=== PATIENT | female | born 1970 | race Two or more races ===

== ENCOUNTER 2018-06-13 12:24 | Emergency (ER) | payer MEDICAID ==
[~2018-06-13] VITALS: Ht 165.1 cm; Wt 101.6 kg
--- NOTE | 2018-06-13 12:26 | NUR ---
ED Nurse Note: pt not in the waiting room.
--- NOTE | 2018-06-13 13:00 | Emergency Room Report ---
History of Present Illness General Chief Complaint: Back Pain-No Injury Source: Patient Present Illness HPI 47-year-old female presents to the emergency department complaining of 6 out of 10 in severity pain to the anterior knee with some swelling status post bumping her knee on a corner of her vehicle. Patient states that after she felt fine however she looked down she had a swollen lump that she became concerned. Patient is also reporting that she has had several episodes of sharp pain going down her leg from her left-sided low back that feels like her legs are negative bowel and then resolves on its own. Patient states she has never had symptoms like this in the past she denies back pain or previous injuries to the back. Patient states that she has had 2 broken toes in the affected extremity for over one month and is still awaiting orthopedic follow-up. She denies urinary frequency, dysuria, hematuria or urinary urgency. Denies history of kidney stones. Denies numbness tingling or loss of sensation or gross motor movements of the extremities, incontinence of bowel or bladder. Denies CP, Palpitations, LOC, AMS, dizziness, Changes in Vision, weakness or a sudden severe headache. Allergies: Coded Allergies: No Known Allergies (Unverified , 06/13/18) Patient History Past Medical History: see triage record Past Surgical History: none Pertinent Family History: none Last Menstrual Period: Mar 2018 Reviewed Nursing Documentation: PMH: Agreed; PSxH: Agreed Nursing Documentation-PMH Past Medical History: No History, Except For Hx Hypertension: Yes Hx Diabetes: Yes Review of Systems All Other Systems: negative except mentioned in HPI Physical Exam Vital Signs Date Time Temp Pulse Resp B/P (MAP) Pulse Ox O2 Delivery O2 Flow Rate FiO2 06/13/18 12:28 99.0 91 16 131/77 95 Room Air Sp02 EP Interpretation: reviewed, normal General Appearance: well appearing, no apparent distress, alert, GCS 15, non- toxic Head: normocephalic, atraumatic Eyes: bilateral eye normal inspection, bilateral eye PERRL ENT: hearing grossly normal, normal voice Neck: full range of motion Respiratory: lungs clear, normal breath sounds, speaking full sentences Cardiovascular #1: regular rate, rhythm Cardiovascular #2: 2+ dorsalis pedis (R), 2+ dorsalis pedis (L) Musculoskeletal: back normal, gait/station normal, normal range of motion, tender - Patient has bilateral lumbar paraspinal tenderness to palpation primarily on the left side with some radiation down to the left upper gluteal as well as left hamstring. There is mild tenderness to palpation to the anterior hernandez just below the knee With some swelling noted. No Increased laxity of the joint no erythema, warmth, bruising or pain with range of motion. Neurologic: alert, oriented x3, responsive, motor strength/tone normal, sensory intact, normal gait, speech normal, grossly normal Psychiatric: judgement/insight normal Skin: normal color, no rash, warm/dry, well hydrated Medical Decision Making PA Attestation Dr. Moses is my supervising Physician whom patient management has been discussed with. Diagnostic Impression: Primary Impression: Contusion of knee, left Qualified Codes: S80.02XA - Contusion of left knee, initial encounter Additional Impression: Sciatic nerve pain Qualified Codes: M54.32 - Sciatica, left side ER Course 47-year-old female presents to the emergency department complaining of 6 out of 10 in severity pain to the anterior knee with some swelling status post bumping her knee on a corner of her vehicle. Patient states that after she felt fine however she looked down she had a swollen lump that she became concerned. Patient is also reporting that she has had several episodes of sharp pain going down her leg from her left-sided low back that feels like her legs are negative bowel and then resolves on its own. Patient states she has never had symptoms like this in the past she denies back pain or previous injuries to the back. Patient states that she has had 2 broken toes in the affected extremity for over one month and is still awaiting orthopedic follow-up. She denies urinary frequency, dysuria, hematuria or urinary urgency. Denies history of kidney stones. Denies numbness tingling or loss of sensation or gross motor movements of the extremities, incontinence of bowel or bladder. Denies CP, Palpitations, LOC, AMS, dizziness, Changes in Vision, weakness or a sudden severe headache. Ddx considered but are not limited to Fracture, dislocation, contusion, Sprain/ Strain/Spasm, Epidural abscess, Neoplastic mets, DVT just to name a few. Vital signs: are WNL, pt. is afebrile H&PE are most consistent with left knee/hernandez contusion, and LBP with sciatic pain symptoms. ambulatory without assistance, no saddle anesthesia. no midline spine pain/tenderness ORDERS: - X-ray's not warranted at this time. ED INTERVENTIONS: - Dyllan wrap applied by zoology technical officer. Pt. remains neurovascularly intact. -I do not identify an emergent condition at this time. With current presentation , pt. is stable for close outpatient follow up and conservative treatment. D/ w pt. to return promptly to ED with worsening or new symptoms.- Pt. verbalizes' understanding and agreement with proposed treatment plan. DISCHARGE: At this time pt. is stable for d/c to home. Will provide printed patient care instructions, and any necessary prescriptions. Care plan and follow up instructions have been discussed with the patient prior to discharge. Last Vital Signs Date Time Temp Pulse Resp B/P (MAP) Pulse Ox O2 Delivery O2 Flow Rate FiO2 06/13/18 12:28 99.0 91 16 131/77 95 Room Air Disposition: HOME, SELF-CARE Condition: Stable Scripts Acetaminophen* (TYLENOL EXTRA STRENGTH*) 500 Mg Tablet 500 MG ORAL Q6H, #20 TAB 0 Refills Prov: Caprice West 06/13/18 Methocarbamol* (ROBAXIN-750*) 750 Mg Tablet 750 MG PO QID for 7 Days, #28 TAB 0 Refills Prov: Caprice West 06/13/18 Patient Instructions: Contusion, [id number], Sciatica Additional Instructions: Take medications as directed. Follow up with a Primary Care Provider in 3-5 days, even if your symptoms have resolved. --Please review list of primary care clinics, if you do not already have a primary care provider Return sooner to ED if new symptoms occur, or current symptoms become worse. Do not drink alcohol, drive, or operate heavy machinery while taking Robaxin as this may cause drowsiness. - Please note that this Emergency Department Report was dictated using [employer] operator helper hot metal technology software, occasionally this can lead to erroneous entry secondary to interpretation by the dictation equipment. Caprice West Jun 13, 2018 13:00
[2018-06-13] MEDS ORDERED: ROBAXIN-750750 MG PO (13:01)
[2018-06-13] MEDS ORDERED: TYLENOL EXTRA500 MG ORAL (13:01)
[2018-06-13] MEDS ORDERED: NKM (13:15)
[2018-06-13 14:02] VITALS: BP 131/77
--- NOTE | 2018-06-13 14:03 | NUR ---
ED Nurse Note: pt. was examed, treated and cleared for D/C home by ER provider. PT. received D/C instructions with prescriptions, verbalized understanding and left ER with steady gait and all personal belongings , ID bend removed.
[2018-06-13 14:04] VITALS: BP 131/77
== END 2018-06-13 14:04 | disposition home or self-care (01) ==
LOC: EMR 13:02
DX: S80.02XA Contusion of left knee, initial encounter (principal); W22.8XXA Striking against or struck by other objects, initial encounter; Y92.810 Car as the place of occurrence of the external cause; M54.32 Sciatica, left side; I10 Essential (primary) hypertension
CPT/HCPCS: 99283

== ENCOUNTER → 2018-10-27 | Emergency (ER) | payer MEDICAID ==
[~2018-10-27] VITALS: Ht 157.5 cm; Wt 107.0 kg
[~2018-10-27] MED LIST: ATORVASTATIN CA40 MG ORAL; BENAZEPRIL HCL20 MG ORAL; GABAPENTIN300 MG ORAL; LEVOTHYROXINE75 MCG ORAL; NKM; ROBAXIN-750750 MG PO; SYMLIN600 MCG/1 SUBQ; TYLENOL EXTRA500 MG ORAL
--- NOTE | 2018-10-27 18:25 | NUR ---
ED Nurse Note: Pt ambulated to Ed from home c/o back pain that radiates to the abdomen, 3/10 for 2 days. Pt is A&Ox4, VSS.
[2018-10-27 18:31] VITALS: BP 168/81
--- NOTE | 2018-10-27 19:14 | NUR ---
HAND-OFF: Report given to Haider Salazar.
--- NOTE | 2018-10-27 19:15 | NUR ---
ED Nurse Note: Received report from Tete/RN. Pt is A/ZEUS 4, VSS. Will continue to monitor.
[2018-10-27 19:23] VITALS: BP 158/76
--- NOTE | 2018-10-27 19:23 | NUR ---
ER DISCHARGE NOTE: Patient is cleared to be discharged per ERMD. Pt is aox4 on room air with stable vital signs. Pt was given dc and prescription instructions and was able to verbalize understanding. Pt's ID band removed. Pt is able to ambulate with steady gait and took all belongings.
--- NOTE | 2018-10-27 19:32 | Emergency Room Report ---
History of Present Illness General Chief Complaint: Lower Back Pain or Injury Source: Patient, Medical Record Present Illness HPI 48-year-old female is in CD for evaluation. Patient complaining of back pain times one week. Pain is dull, 6 out of 10, radiating to the chest.With deep breaths. Denies chest pain or shortness of breath. Denies cough. States she was seen by her PMD last week and was prescribed ibuprofen. States that it is helping somewhat with the pain. No other aggravating relieving factors. Denies any other associated symptoms Allergies: Coded Allergies: No Known Allergies (Unverified , 06/13/18) Patient History Past Medical History: DM, HTN Past Surgical History: none Pertinent Family History: none Social History: Denies: smoking, alcohol use, drug use Last Menstrual Period: 08/27/18 Now: No Immunizations: UTD Reviewed Nursing Documentation: PMH: Agreed; PSxH: Agreed Nursing Documentation-PMH Past Medical History: No History, Except For Hx Hypertension: Yes Hx Diabetes: Yes Review of Systems All Other Systems: negative except mentioned in HPI Physical Exam Vital Signs Date Time Temp Pulse Resp B/P (MAP) Pulse Ox O2 Delivery O2 Flow Rate FiO2 10/27/18 18:12 98.1 86 16 96 Room Air 10/27/18 18:31 168/81 Sp02 EP Interpretation: reviewed, normal General Appearance: no apparent distress, alert, GCS 15, non-toxic, obese Head: normocephalic, atraumatic Eyes: bilateral eye normal inspection, bilateral eye PERRL ENT: hearing grossly normal, normal pharynx, no angioedema, normal voice Neck: full range of motion, supple/symm/no masses Respiratory: chest non-tender, lungs clear, normal breath sounds, speaking full sentences Cardiovascular #1: regular rate, rhythm, no edema Cardiovascular #2: 2+ carotid (R), 2+ carotid (L), 2+ radial (R), 2+ radial (L) , 2+ dorsalis pedis (R), 2+ dorsalis pedis (L) Gastrointestinal: normal bowel sounds, non tender, soft, non-distended, no guarding, no rebound Rectal: deferred Genitourinary: normal inspection, no CVA tenderness, no vertebral tenderness Musculoskeletal: gait/station normal, normal range of motion, tender - paraspinal thoracic pain Neurologic: alert, oriented x3, responsive, motor strength/tone normal, sensory intact, speech normal Psychiatric: judgement/insight normal, memory normal, mood/affect normal, no suicidal/homicidal ideation Reflexes: 3+ bicep (R), 3+ bicep (L), 3+ tricep (R), 3+ tricep (L), 3+ knee (R) , 3+ knee (L) Skin: normal color, no rash, warm/dry, well hydrated Lymphatic: no adenopathy Medical Decision Making Diagnostic Impression: Primary Impression: Back pain Qualified Codes: M54.6 - Pain in thoracic spine ER Course Hospital Course 48-year-old female presents ED complaining of upper back pain Differential diagnoses include: pneumonia, muscular pain, ACS Clinical course Patient placed on stretcher. After initial history, physical exam reveals a middle-aged female in no acute distress. There is some paraspinal pain in the thoracic region. No vertebral body tenderness. Lungs clear. Remainder physical exam unremarkable I ordered EKG and chest x-ray EKGnormal sinus rhythm no acute ischemic changes interpreted by me Chest x-raycardiomegaly, no focal consolidation, no other acute process Discussed findings with patient. Pain is likely muscular. No signs of infectious process. Afebrile, stable vitals. Safe for discharge or close outpatient follow-up. States she has a PMD. We'll prescribe robaxin Diagnosis - back pain Stable and discharged to home with prescription for robaxin. Followup with PMD. Return to ED if symptoms recur or worsen EKG Diagnostic Results Rate: normal Rhythm: NSR ST Segments: no acute changes ASA given to the pt in ED: No Rhythm Strip Diag. Results EP Interpretation: yes Rhythm: NSR, no PVC's, no ectopy Chest X-Ray Diagnostic Results Chest X-Ray Diagnostic Results : Chest X-Ray Ordered: Yes # of Views/Limited/Complete: 1 View Indication: Chest Pain EP Interpretation: Yes Interpretation: no consolidation, no effusion, no pneumothorax, no acute cardiopulmonary disease Impression: No acute disease Electronically Signed by: Electronically signed by Antonio Bruce MD Last Vital Signs Date Time Temp Pulse Resp B/P (MAP) Pulse Ox O2 Delivery O2 Flow Rate FiO2 10/27/18 18:31 98.1 86 18 168/81 96 Room Air Status: improved Disposition: HOME, SELF-CARE Condition: Stable Scripts Methocarbamol* (ROBAXIN-750*) 750 Mg Tablet 750 MG PO TID, #21 TAB 0 Refills Prov: Antonio Bruce MD 10/27/18 Patient Instructions: Back Pain, Adult Antonio Bruce MD October 27, 2018 19:32
--- NOTE | 2018-10-28 11:53 | Diagnostic Imaging Report ---
Indication: Dyspnea Comparison: None A single view chest radiograph was obtained. Findings: Cardiomediastinal appearance is within normal limits for age. The lungs are clear. Pulmonary vascularity is appropriate. The diaphragmatic contour is smooth and costophrenic angles are sharp. No pleural effusions are identified. The bones are unremarkable. Impression: No acute findings
== END | disposition home or self-care (01) ==
LOC: EMR 18:43
DX: M54.6 Pain in thoracic spine (principal); I10 Essential (primary) hypertension; E11.9 Type 2 diabetes mellitus without complications
CPT/HCPCS: 71045; 93005; 99283

== ENCOUNTER 2019-04-01 12:05 | Emergency (ER) | payer MEDICAID ==
[~2019-04-01] VITALS: Ht 157.5 cm; Wt 108.9 kg
[2019-04-01 12:15] VITALS: BP 137/69
--- NOTE | 2019-04-01 12:15 | NUR ---
ED Nurse Note: Stacy walked into Ed c/o right eye pain for the past 2 days, patient denies any changes in vision, states that her eye is puffy and has a tendency to scratch it, patient has a vision of bilateral 20/40 will continue to monitor
--- NOTE | 2019-04-01 12:26 | Emergency Room Report ---
History of Present Illness General Chief Complaint: Eye Problems Source: Patient, Medical Record Present Illness HPI 48-year-old female with history of diabetes who is insulin-dependent here complaining of pain and swelling as well as discharge from right eye that started yesterday. Patient does not recall fall or injury. Reports that she might have touched her right eye with a dirty hand. Scant amount of yellow discharge is noted. Also some periorbital swelling noted. Complains of a 5 out of 10 pain in the right eye however denies photophobia, blurry vision. Denies headache, dizziness, vertigo, palpitations chest pain. Has not taken medication for symptom relief. Allergies: Coded Allergies: No Known Allergies (Unverified , 06/13/18) Patient History Past Medical History: see triage record Past Surgical History: unable to obtain Pertinent Family History: none Last Menstrual Period: 03/31/2019 Now: No : 0 Para: 0 Immunizations: UTD Reviewed Nursing Documentation: PMH: Agreed; PSxH: Agreed Nursing Documentation-PMH Hx Hypertension: Yes Hx Diabetes: Yes Review of Systems All Other Systems: negative except mentioned in HPI Physical Exam Vital Signs Date Time Temp Pulse Resp B/P (MAP) Pulse Ox O2 Delivery O2 Flow Rate FiO2 04/01/19 12:12 98.8 85 18 137/69 (91) 95 Room Air Sp02 EP Interpretation: reviewed, normal General Appearance: no apparent distress, alert, GCS 15, non-toxic Head: normocephalic, atraumatic Eyes: right eye other - Conjunctivae injected ENT: hearing grossly normal, normal pharynx, no angioedema, normal voice Neck: full range of motion, supple/symm/no masses Respiratory: chest non-tender, lungs clear, normal breath sounds, no rhonchi, no wheezing, speaking full sentences Cardiovascular #1: regular rate, rhythm, no edema, no murmur Gastrointestinal: normal bowel sounds, non tender, soft, non-distended, no guarding, no rebound Genitourinary: no CVA tenderness Musculoskeletal: back normal, gait/station normal, normal range of motion, non- tender Neurologic: alert, oriented x3, responsive, motor strength/tone normal, sensory intact, speech normal Psychiatric: judgement/insight normal, memory normal, mood/affect normal, no suicidal/homicidal ideation Skin: no rash Lymphatic: no adenopathy Medical Decision Making PA Attestation All my diagnosis and treatment plans were reviewed ad discussed with my supervising physician Dr. Moses Diagnostic Impression: Primary Impression: Bacterial conjunctivitis Additional Impression: Periorbital cellulitis of right eye ER Course 48-year-old female with history of diabetes who is insulin-dependent here complaining of pain and swelling as well as discharge from right eye that started yesterday. Patient does not recall fall or injury. Reports that she might have touched her right eye with a dirty hand. Scant amount of yellow discharge is noted. Also some periorbital swelling noted. Complains of a 5 out of 10 pain in the right eye however denies photophobia, blurry vision. Denies headache, dizziness, vertigo, palpitations chest pain. Has not taken medication for symptom relief. Ddx considered but are not limited to: bacterial conjunctivitis, allergic conjunctivitis, viral conjunctivitis, periorbital cellulitis, global trauma Vital signs: are WNL, pt. is afebrile H&PE are most consistent with: Bacterial conjunctivitis, periorbital cellulitis ORDERS: Augmentin, ofloxacin ophthalmic ED INTERVENTIONS: None required at this time. DISCHARGE: At this time pt. is stable for d/c to home. Will provide printed patient care instructions, and any necessary prescriptions. Care plan and follow up instructions have been discussed with the patient prior to discharge. Due to patient's diabetic status patient to be aggressively treated with antibiotics, also follow-up with import dispatcher. Patient agrees and also agrees to return to emergency room if worsening symptoms. Last Vital Signs Date Time Temp Pulse Resp B/P (MAP) Pulse Ox O2 Delivery O2 Flow Rate FiO2 04/01/19 12:12 98.8 85 18 137/69 (91) 95 Room Air Disposition: HOME, SELF-CARE Condition: Stable Scripts Amoxicillin/Potassium Clav 875-125* (AUGMENTIN 875-125 TABLET*) 1 Each Tablet 1 TAB ORAL TWICE A DAY for 7 Days, #14 TAB Prov: Jackie Beach 04/01/19 Ofloxacin (Ofloxacin) 5 Ml Drops 2 DROP OP Q4HR for 5 Days, #5 ML Prov: Jackie Beach 04/01/19 Patient Instructions: Bacterial Conjunctivitis, [id number], Cellulitis, Easy- to-Read Additional Instructions: Take medication as directed, follow-up with your primary care provider if worsening symptoms return to the emergency room also follow-up with an import dispatcher Jackie Beach Apr 01, 2019 12:26
[2019-04-01] MEDS ORDERED: OFLOXACIN10 ML OP (12:27)
[2019-04-01] MEDS ORDERED: AUGMENTIN 875-1 EAC1 ORAL (12:27)
[2019-04-01 12:45] VITALS: BP 137/69
--- NOTE | 2019-04-01 12:45 | NUR ---
ER DISCHARGE NOTE: Patient is cleared to be discharged per ERMD, pt is aox4, on room air, with stable vital signs. pt was given dc and prescription instructions, pt was able to verbalize understanding, pt id band removed without complications. pt is able to ambulate with steady gait. pt took all belongings.
== END 2019-04-01 12:45 | disposition home or self-care (01) ==
LOC: EMR 12:22
DX: H10.89 Other conjunctivitis (principal); L03.213 Periorbital cellulitis; I10 Essential (primary) hypertension; E11.9 Type 2 diabetes mellitus without complications
CPT/HCPCS: 99282

== ENCOUNTER 2019-08-08 18:38 | Inpatient (IN) | payer MEDICAID ==
[~2019-08-08] VITALS: Ht 157.5 cm; Wt 108.0 kg
[~2019-08-08 18:38] MED LIST changes: +AUGMENTIN 875-1 EAC1 ORAL; +OFLOXACIN10 ML OP
[2019-08-08 19:00] VITALS: BP 145/66
--- NOTE | 2019-08-08 19:07 | Emergency Room Report ---
History of Present Illness General Chief Complaint: Palpitations Source: Patient Present Illness HPI Patient presents with complaints of chest palpitations that started this morning She reports that later in the afternoon she had some chest heaviness Denies any active pain at this time denies any headache denies any vomiting or diarrhea she reports that a similar episode happened several years ago She was at another emergency room and was found to be okay for follow-up Patient has diabetes and takes insulin for diabetes Allergies: Coded Allergies: No Known Allergies (Unverified , 06/13/18) Patient History Past Medical History: see triage record Last Menstrual Period: na Now: No Reviewed Nursing Documentation: PMH: Agreed; PSxH: Agreed Nursing Documentation-PMH Past Medical History: No History, Except For Hx Hypertension: Yes Hx Diabetes: Yes Review of Systems All Other Systems: negative except mentioned in HPI Physical Exam Vital Signs Date Time Temp Pulse Resp B/P (MAP) Pulse Ox O2 Delivery O2 Flow Rate FiO2 08/08/19 18:43 98.1 85 20 141/66 (91) 94 Room Air Sp02 EP Interpretation: reviewed, normal General Appearance: well appearing, no apparent distress Head: normocephalic, atraumatic Eyes: bilateral eye PERRL, bilateral eye EOMI ENT: hearing grossly normal, normal pharynx, TMs + canals normal, uvula midline Neck: full range of motion, supple, no meningismus, no bony tend Respiratory: lungs clear, normal breath sounds, no rhonchi, no respiratory distress, no retraction, no accessory muscle use Cardiovascular #1: normal peripheral pulses, regular rate, rhythm, no edema, no gallop, no JVD, no murmur Gastrointestinal: normal bowel sounds, non tender, soft, no mass, no organomegaly, non-distended, no guarding, no hernia, no pulsatile mass, no rebound Genitourinary: no CVA tenderness Musculoskeletal: normal inspection Neurologic: motor strength/tone normal, parking assistant III-XII nml as tested, oriented x3 , sensory intact, responsive Psychiatric: mood/affect normal Lymphatic: normal inspection, no adenopathy Medical Decision Making Diagnostic Impression: Primary Impression: ACS (acute coronary syndrome) ER Course Patient is a fairly complex patient with multiple differential to consideration including but not limited to cardiac cardiopulmonary and vascular emergencies Patient's EKG and initial blood test are appropriate On several visits back into the room while the patient was sleeping There is evidence of what appears to be consistency with sleep apnea Causing desaturations as well patient was discussed regarding this at this time admitted for further inpatient care and close follow-up Labs Test 08/08/19 19:05 08/08/19 19:50 White Blood Count 12.4 K/UL (4.8-10.8) Red Blood Count 4.48 M/UL (4.20-5.40) Hemoglobin 14.5 G/DL (12.0-16.0) Hematocrit 42.6 % (37.0-47.0) Mean Corpuscular Volume 95 FL (80-99) Mean Corpuscular Hemoglobin 32.3 PG (27.0-31.0) Mean Corpuscular Hemoglobin Concent 34.0 G/DL (32.0-36.0) Red Cell Distribution Width 11.7 % (11.6-14.8) Platelet Count 221 K/UL (150-450) Mean Platelet Volume 10.6 FL (6.5-10.1) Neutrophils (%) (Auto) 66.7 % (45.0-75.0) Lymphocytes (%) (Auto) 24.8 % (20.0-45.0) Monocytes (%) (Auto) 6.6 % (1.0-10.0) Eosinophils (%) (Auto) 1.3 % (0.0-3.0) Basophils (%) (Auto) 0.6 % (0.0-2.0) Sodium Level 138 MMOL/L (136-145) Potassium Level 4.1 MMOL/L (3.5-5.1) Chloride Level 101 MMOL/L (98-107) Carbon Dioxide Level 31 MMOL/L (21-32) Anion Gap 6 mmol/L (5-15) Blood Urea Nitrogen 22 mg/dL (7-18) Creatinine 0.8 MG/DL (0.55-1.30) Estimat Glomerular Filtration Rate > 60 mL/min (>60) Glucose Level 243 MG/DL (74-106) Calcium Level 8.5 MG/DL (8.5-10.1) Total Bilirubin 0.4 MG/DL (0.2-1.0) Aspartate Amino Transf (AST/SGOT) 15 U/L (15-37) Alanine Aminotransferase (ALT/SGPT) 26 U/L (12-78) Alkaline Phosphatase 116 U/L (46-116) Total Creatine Kinase 112 U/L (26-308) Troponin I 0.019 ng/mL (0.000-0.056) Pro-B-Type Natriuretic Peptide 28 pg/mL (0-125) Total Protein 7.7 G/DL (6.4-8.2) Albumin 3.3 G/DL (3.4-5.0) Globulin 4.4 g/dL Albumin/Globulin Ratio 0.8 (1.0-2.7) Lipase 68 U/L (73-393) Urine Opiates Screen Negative (NEGATIVE) Urine Barbiturates Screen Negative (NEGATIVE) Phencyclidine (PCP) Screen Negative (NEGATIVE) Urine Amphetamines Screen Negative (NEGATIVE) Urine Benzodiazepines Screen Negative (NEGATIVE) Urine Cocaine Screen Negative (NEGATIVE) Urine Marijuana (THC) Screen Negative (NEGATIVE) EKG Diagnostic Results Rate: normal Rhythm: NSR ST Segments: no acute changes Rhythm Strip Diag. Results EP Interpretation: yes Rate: 66 Rhythm: NSR, no PVC's, no ectopy Chest X-Ray Diagnostic Results Chest X-Ray Diagnostic Results : Chest X-Ray Ordered: Yes # of Views/Limited/Complete: 1 View Indication: Chest Pain EP Interpretation: Yes Interpretation: no consolidation, no effusion, no pneumothorax Impression: No acute disease Electronically Signed by: Reagan Moses DO Last Vital Signs Date Time Temp Pulse Resp B/P (MAP) Pulse Ox O2 Delivery O2 Flow Rate FiO2 08/08/19 19:00 98.1 83 16 145/66 97 Room Air Status: improved Disposition: ADMITTED INPATIENT Condition: Serious Reagan Moses DO Aug 08, 2019 19:07
[2019-08-08 19:31] LABS: BASOPHILS % (AUTO) 0.6 % (0.0-2.0); EOSINOPHILS % (AUTO) 1.3 % (0.0-3.0); HEMATOCRIT 42.6 % (37.0-47.0); HEMOGLOBIN 14.5 G/DL (12.0-16.0); LYMPHOCYTES % (AUTO) 24.8 % (20.0-45.0); MEAN CORPUSCULAR VOLUME 95 FL (80-99); MONOCYTES % (AUTO) 6.6 % (1.0-10.0); NEUTROPHILS % (AUTO) 66.7 % (45.0-75.0); PLATELET COUNT 221 K/UL (150-450); RED BLOOD COUNT 4.48 M/UL (4.20-5.40); RED CELL DISTRIBUTION WIDTH 11.7 % (11.6-14.8); WHITE BLOOD COUNT 12.4 K/UL (4.8-10.8)
[2019-08-08 19:38] LABS: ANION GAP 6 mmol/L (5-15); BLOOD UREA NITROGEN 22 mg/dL (7-18); CALCIUM 8.5 MG/DL (8.5-10.1); CARBON DIOXIDE 31 MMOL/L (21-32); CHLORIDE 101 MMOL/L (98-107); CREATININE 0.8 MG/DL (0.55-1.30); POTASSIUM 4.1 MMOL/L (3.5-5.1); SODIUM 138 MMOL/L (136-145)
[2019-08-08 19:52] LABS: ALANINE AMINOTRANSFERASE 26 U/L (12-78); ALBUMIN 3.3 G/DL (3.4-5.0); ALBUMIN/GLOBULIN RATIO 0.8 (1.0-2.7); ALKALINE PHOSPHATASE 116 U/L (46-116); ASPARTATE AMINO TRANSFERASE 15 U/L (15-37); BILIRUBIN,TOTAL 0.4 MG/DL (0.2-1.0); CREATINE KINASE 112 U/L (26-308)
[2019-08-08 21:00] VITALS: BP 133/67
[2019-08-08] MEDS ORDERED: Acetaminophen 500mg (ES) tab ORAL PRN (23:45)
[2019-08-09] MEDS ORDERED: Methocarbamol 750mg tab ORAL PRN
[2019-08-09] MEDS: NovoLOG Insulin Flexpen SUBQ SCH ×4 (06:06→21:23)
[2019-08-09 08:00] VITALS: BP 144/66
--- NOTE | 2019-08-09 08:00 | Consultation ---
DATE OF CONSULTATION: 08/09/2019 ENDOCRINOLOGY CONSULTATION CONSULTING PHYSICIAN: David Pryor M.D. REFERRING PHYSICIAN: Reagan Key M.D. REASON FOR CONSULTATION: Diabetes management and hypothyroidism. HISTORY OF PRESENT ILLNESS: The patient is a 48-year-old female with history of diabetes and hypothyroidism, who presented to the hospital with chest palpitation and heaviness. The patient had high risk factors, was admitted to the floor for observation and treatment and rule out acute coronary syndrome. Her first troponin is negative at 0.09. Endocrinology was consulted in order to assist in the management of endocrine issues. 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 She is admitted to telemetry bed and currently in not apparent distress. PAST MEDICAL HISTORY: 1. Diabetes. 2. Hypertension. 3. Hypothyroidism. PAST SURGICAL HISTORY: None. FAMILY HISTORY: Noncontributory. SOCIAL HISTORY: No smoking, alcohol, or drug use. REVIEW OF SYSTEMS: A 12-point review of systems was performed and the pertinent positives and negatives as mentioned in the history of present illness. MEDICATIONS: Reviewed and reconciled. LABORATORY DATA: Sodium 131, potassium 4.1, chloride 101, bicarb 31, BUN 22, creatinine 0.8, glucose of 242, calcium 9.3. Troponin 0.019. Lipase 68. Tox screen is negative. WBC 12, hemoglobin 14, hematocrit 42, platelets of 221. DIAGNOSES: 1. Chest pain, rule out acute coronary syndrome. 2. Diabetes, out of control. 3. Hypothyroidism. DISCUSSION: 1. Check TSH, free T4. 2. For now continue home dose of levothyroxine 100 mcg. 3. Blood glucose monitoring before meals and at bedtime with NovoLog coverage. 4. Hypoglycemia protocol. 5. Start Levemir 12 units daily. 6. Nateglinide 60 mg before each meal. 7. Check hemoglobin A1c. 8. Further adjustment according to blood glucose value. We will follow the patient closely during hospital stay. Thank you, Dr. Key, for the courtesy of this consultation. David Pryor M.D. DR: AGUSTIN/ANTHONY JOB#: [id number] CC: SILVIA
--- NOTE | 2019-08-09 08:02 | Cardiac Electrophysiology PN ---
Subjective Subjective [id number] Objective Last 24 Hour Vital Signs Date Time Temp Pulse Resp B/P (MAP) Pulse Ox O2 Delivery O2 Flow Rate FiO2 08/09/19 04:00 81 08/08/19 23:38 75 08/08/19 23:35 Room Air 08/08/19 23:10 98.4 85 16 133/67 97 Room Air 08/08/19 21:00 98.4 85 16 133/67 97 Room Air 08/08/19 19:00 98.1 83 16 145/66 97 Room Air 08/08/19 18:43 98.1 85 20 141/66 (91) 94 Room Air Intake and Output 08/08/19 08/09/19 18:59 06:59 Intake Total 250 ml Balance 250 ml Intake Oral 250 ml # Voids 1 Laboratory Tests Test 08/08/19 19:05 08/08/19 19:50 08/09/19 04:00 08/09/19 06:42 White Blood Count 12.4 K/UL (4.8-10.8) H Red Blood Count 4.48 M/UL (4.20-5.40) Hemoglobin 14.5 G/DL (12.0-16.0) Hematocrit 42.6 % (37.0-47.0) Mean Corpuscular Volume 95 FL (80-99) Mean Corpuscular Hemoglobin 32.3 PG (27.0-31.0) H Mean Corpuscular Hemoglobin Concent 34.0 G/DL (32.0-36.0) Red Cell Distribution Width 11.7 % (11.6-14.8) Platelet Count 221 K/UL (150-450) Mean Platelet Volume 10.6 FL (6.5-10.1) H Neutrophils (%) (Auto) 66.7 % (45.0-75.0) Lymphocytes (%) (Auto) 24.8 % (20.0-45.0) Monocytes (%) (Auto) 6.6 % (1.0-10.0) Eosinophils (%) (Auto) 1.3 % (0.0-3.0) Basophils (%) (Auto) 0.6 % (0.0-2.0) Sodium Level 138 MMOL/L (136-145) Potassium Level 4.1 MMOL/L (3.5-5.1) Chloride Level 101 MMOL/L (98-107) Carbon Dioxide Level 31 MMOL/L (21-32) Anion Gap 6 mmol/L (5-15) Blood Urea Nitrogen 22 mg/dL (7-18) H Creatinine 0.8 MG/DL (0.55-1.30) Estimat Glomerular Filtration Rate > 60 mL/min (>60) Glucose Level 243 MG/DL (74-106) H Calcium Level 8.5 MG/DL (8.5-10.1) Total Bilirubin 0.4 MG/DL (0.2-1.0) Aspartate Amino Transf (AST/SGOT) 15 U/L (15-37) Alanine Aminotransferase (ALT/SGPT) 26 U/L (12-78) Alkaline Phosphatase 116 U/L (46-116) Total Creatine Kinase 112 U/L (26-308) Troponin I 0.019 ng/mL (0.000-0.056) 0.029 ng/mL (0.000-0.056) Pro-B-Type Natriuretic Peptide 28 pg/mL (0-125) Total Protein 7.7 G/DL (6.4-8.2) Albumin 3.3 G/DL (3.4-5.0) L Globulin 4.4 g/dL Albumin/Globulin Ratio 0.8 (1.0-2.7) L Lipase 68 U/L (73-393) L Urine Opiates Screen Negative (NEGATIVE) Urine Barbiturates Screen Negative (NEGATIVE) Phencyclidine (PCP) Screen Negative (NEGATIVE) Urine Amphetamines Screen Negative (NEGATIVE) Urine Benzodiazepines Screen Negative (NEGATIVE) Urine Cocaine Screen Negative (NEGATIVE) Urine Marijuana (THC) Screen Negative (NEGATIVE) Hemoglobin A1c 10.1 % (4.3-6.0) H Gerald Ponce MD Aug 09, 2019 08:02
[2019-08-09] MEDS ORDERED: Lexiscan 0.4mg/5ml syringe IV PRN (08:15)
[2019-08-09] MEDS: Levemir Flexpen SUBQ SCH ×2 (09:00→11:50)
[2019-08-09] MEDS: Benazepril 10mg tab ORAL SCH (09:31)
[2019-08-09 11:15] LABS: APPEARANCE,URINE CLEAR; BILIRUBIN, URINE NEGATIVE (NEGATIVE); COLOR,URINE PALE YELLOW; GLUCOSE, URINE (UA) 4+ (NEGATIVE); KETONES,URINE NEGATIVE (NEGATIVE); LEUKOCYTE ESTERASE ,URINE NEGATIVE (NEGATIVE); NITRITE,URINE NEGATIVE (NEGATIVE); PH,URINE 7 (4.5-8.0); PROTEIN,URINE NEGATIVE (NEGATIVE); UROBILINOGEN,URINE NORMAL MG/DL (0.0-1.0)
--- NOTE | 2019-08-09 11:45 | Consultation ---
DATE OF CONSULTATION: 08/09/2019 CARDIOLOGY CONSULTATION CONSULTING PHYSICIAN: Gerald Ponce M.D. REFERRING PHYSICIAN: Reagan Key M.D. REASON FOR CONSULTATION: Chest pain. HISTORY OF PRESENT ILLNESS: The patient is a 48-year-old lady with history of hypertension, insulin-dependent diabetes, presented to the emergency room with palpitation and chest heaviness. The patient denies any prior myocardial infarction or coronary artery disease or congestive heart failure. In the ER, blood pressure is 141/62, pulse of 85, respiration of 20. The patient's troponin were negative. Her EKG also did not show any acute ischemic changes. Cardiology consultation was obtained for further evaluation and management. REVIEW OF SYSTEMS: Review of systems was negative other than what was mentioned in the history of present illness. PAST MEDICAL HISTORY: As mentioned above. FAMILY HISTORY: Noncontributory. MEDICATIONS: Per reconciliation. SOCIAL HISTORY: She lives at home. Does not smoke or drink alcohol. PHYSICAL EXAMINATION: VITAL SIGNS: Show blood pressure of 132/67, pulse is 75, respirations 18, and temperature 98.4. HEAD AND NECK: Showed no JVD. LUNGS: Clear. CARDIOVASCULAR: Shows regular S1 and S2 with no gallop or murmur. ABDOMEN: Soft. EXTREMITIES: No pitting edema. LABORATORY AND DIAGNOSTIC DATA: EKG shows sinus rhythm. No evidence of ischemia. Labs show sodium 138, potassium 4.1, BUN of 22, creatinine 0.8, and glucose of 243. Troponin negative x2. Hemoglobin A1c 10.1. ASSESSMENT AND PLAN: 1. Chest pain. The patient already ruled out for myocardial infarction. Her urine toxicology screen was negative. We scheduled the patient for her echocardiogram as well as nuclear stress test for further evaluation. 2. Hypertension. Blood pressure currently is stable on benazepril 20 mg daily and will be continued. 3. Uncontrolled diabetes. Hemoglobin A1c of more than 10. The patient is on insulin. 4. Hyperlipidemia, on Lipitor. 5. Obesity. 6. Hypothyroidism, on Synthroid. Thank you very much for allowing me to participate in the care of this patient. Please do not hesitate to contact me for any questions regarding my evaluation. Gerald Ponce M.D. DR: MELVA JOB#: [id number] CC:
[2019-08-09] MEDS: Nateglinide 60mg tab ORAL SCH ×3 (11:48→17:28)
--- NOTE | 2019-08-09 11:57 | Diagnostic Imaging Report ---
Indication: Dyspnea Comparison: 10/27/2018 A single view chest radiograph was obtained. Findings: Cardiomediastinal appearance is within normal limits for age. The lungs are clear. Pulmonary vascularity is appropriate. The diaphragmatic contour is smooth and costophrenic angles are sharp. No pleural effusions are identified. The bones are unremarkable. Impression: No acute findings
[2019-08-09 12:00] VITALS: BP 134/66
[2019-08-09 16:00] VITALS: BP 124/56
--- NOTE | 2019-08-09 19:15 | Consultation ---
DATE OF CONSULTATION: 08/09/2019 PULMONARY CONSULTATION CONSULTING PHYSICIAN: Pj Lopez M.D. REFERRING PHYSICIAN: Reagan Key M.D. HISTORY OF PRESENT ILLNESS: This is a 48-year-old female with history of diabetes mellitus and hypothyroidism, came to the hospital with chest pain and palpitations. The patient is seen and worked up by the ER physician as well as by Cardiology. The patient was mildly hypertensive. Her troponins have been negative and EKG has also been negative. The patient underwent imaging studies. An x-ray of chest was obtained, which is negative. She was found to be normoxemic and was not tachypneic. I have been asked to provide a pulmonary consultation. PAST MEDICAL HISTORY: Unremarkable except for history of diabetes mellitus and hypertension. PAST SURGICAL HISTORY: None. SOCIAL HISTORY: Lives at home. Denies alcohol or tobacco usage. REVIEW OF SYSTEMS: Denies any headaches, hematemesis, melena, hematuria, or hematochezia. PHYSIAL EXAMINATION: GENERAL: Reveals a obese female. VITAL SIGNS: Blood pressure 150/60, heart rate 84, respirations , afebrile. HEENT: Unremarkable. LUNGS: Clear breath sounds bilaterally. HEART: Normal heart sounds. ABDOMEN: Soft. EXTREMITIES: There is no edema. LABORATORY DATA: Lab testing shows white count , otherwise normal CBC and BMP. Glucose 243. Hemoglobin 10.1. Urinalysis is negative. Toxicology is negative. X-ray of chest negative. IMPRESSION: 1. Chest pain, deferred to Cardiology. 2. No evidence of pneumonia. 3. Hypertension. 4. Diabetes mellitus. DISCUSSION: Agree with current medications and care. The patient needs a cardiac workup, which I concur. Stress test has been ordered. Continue home medications. Diabetes control. We will follow. Pj Lopez M.D. DR: CRAIG JOB#: [id number] CC:
[2019-08-09 20:00] VITALS: BP 124/72
[2019-08-09] MEDS ORDERED: Atorvastatin 80mg tab ORAL SCH (21:00)
[2019-08-09] MEDS ORDERED: SYNTHROID100 MCG ORAL (21:03)
--- NOTE | 2019-08-09 23:15 | History and Physical Report ---
DATE OF ADMISSION: 08/08/2019 HISTORY OF PRESENT ILLNESS: The patient comes in because of complaint of chest pressure and shortness of breath and dizziness for the past 2 days. Denies orthopnea. Denies nausea, vomiting, or diarrhea. Denies shortness of breath. Denies cold-like symptoms. Denies chills. Denies orthopnea. Denies syncope. The patient is admitted to rule out acute coronary syndrome. Denies orthopnea. PAST MEDICAL HISTORY: Significant for hyperlipidemia, hypertension, NIDDM, and hypothyroidism. PAST SURGICAL HISTORY: None. ALLERGIES: None. FAMILY HISTORY: Noncontributory. SOCIAL HISTORY: Denies history of smoking, alcohol, or illicit drugs. MEDICATIONS: Benazepril, gabapentin, insulin, Levoxyl. REVIEW OF SYSTEMS: HEENT: Denies headaches. RESPIRATORY: Does have shortness of breath for two days. Denies wheezing. Denies cough. CARDIOVASCULAR: Reports chest pain for two days. No radiation. No orthopnea. GASTROINTESTINAL: Denies nausea, vomiting, or diarrhea. Denies heartburn. EXTREMITIES: Denies pain. CENTRAL NERVOUS SYSTEM: Denies change in speech pattern. PHYSICAL EXAMINATION: VITAL SIGNS: Temperature is 97, pulse is 82, blood pressure 144/66. HEENT: PERRLA. NECK: Supple. No lymphadenopathy. CHEST: Clear to auscultation. CARDIOVASCULAR: Regular rate and rhythm. No murmurs or extra sounds. GASTROINTESTINAL: Soft, nontender, nondistended. No organomegaly. EXTREMITIES: No edema. Moves all four extremities. Sensory intact to light touch. Reflexes equal on both sides. EKG is normal. LABORATORY DATA: WBC of 12.4, hemoglobin 14.4, platelets 221. Sodium 138, potassium 4.1, creatinine of 0.8, BUN of 22. Troponin of 0.019. ASSESSMENT AND PLAN: Rule out acute coronary syndrome, shortness of breath. I have basically consulted Dr. Pj Lopez, Dr. Ponce, Dr. Pryor for the management of diabetes as well as for shortness of breath workup as well as for acute coronary syndrome to rule out acute coronary syndrome. Reagan Key M.D. DR: ZAKIYA JOB#: [id number] CC:
[2019-08-10] VITALS: BP 124/59
[2019-08-10 04:00] VITALS: BP 130/76
--- NOTE | 2019-08-10 06:01 | General Progress Note ---
Assessment/Plan Problem List: (1) Hypothyroid ICD Codes: E03.9 - Hypothyroidism, unspecified SNOMED: 63676859 (2) Diabetes mellitus out of control ICD Codes: E11.65 - Type 2 diabetes mellitus with hyperglycemia SNOMED: 50106346, 226745573 (3) Back pain ICD Codes: M54.9 - Dorsalgia, unspecified SNOMED: 653596688 (4) Chest pain ICD Codes: R07.9 - Chest pain, unspecified SNOMED: 85495291 Assessment/Plan: increase Levemir to 30 units daily add Novolog 10 units ac tid continue NISS ac / hs DC Starlix follow TSH, free T4 continue Levothyroxine 100 mcg daily for now Subjective Allergies: Coded Allergies: No Known Allergies (Unverified , 06/13/18) All Systems: reviewed and negative except above Subjective events noted interval notes reviewed glucose values very high A1c as high as 10 Item Value Date Time Bedside Blood Glucose 357 mg/dl H 08/09/19 2123 Bedside Blood Glucose 367 mg/dl H 08/09/19 1730 Bedside Blood Glucose 342 mg/dl H 08/09/19 1150 Bedside Blood Glucose 285 mg/dl H 08/09/19 0630 Objective Last 24 Hour Vital Signs Date Time Temp Pulse Resp B/P (MAP) Pulse Ox O2 Delivery O2 Flow Rate FiO2 08/10/19 04:00 76 08/10/19 00:00 74 08/09/19 21:00 Room Air 08/09/19 20:00 82 08/09/19 20:00 97.2 78 17 124/72 (89) 95 08/09/19 16:00 97.8 96 18 124/56 (78) 94 08/09/19 16:00 89 08/09/19 12:00 80 08/09/19 12:00 98.2 77 18 134/66 (88) 95 08/09/19 09:31 144/66 08/09/19 09:00 Room Air 08/09/19 08:00 97.0 82 18 144/66 (92) 93 08/09/19 08:00 81 Intake and Output 08/09/19 08/10/19 19:00 07:00 Intake Total 600 ml Balance 600 ml Intake Oral 600 ml # Voids 3 Laboratory Tests 08/09/19 06:42: Hemoglobin A1c 10.1H 08/09/19 11:07: Urine Color Pale yellow, Urine Appearance Clear, Urine pH 7, Urine Specific [place] 1.005, Urine Protein Negative, Urine Glucose (UA) 4+H, Urine Ketones Negative, Urine Blood Negative, Urine Nitrite Negative, Urine Bilirubin Negative , Urine Urobilinogen Normal, Urine Leukocyte Esterase Negative, Urine RBC 0-2, Urine WBC 0-2, Urine Squamous Epithelial Cells Occasional, Urine Bacteria Occasional Height (Feet): 5 Height (Inches): 2.00 Weight (Pounds): 238 General Appearance: no apparent distress Neck: normal alignment Cardiovascular: normal rate Respiratory/Chest: lungs clear Abdomen: normal bowel sounds Pelvis: normal external exam Objective Current Medications Medications (Trade) Dose Ordered Sig/Kady Route PRN Reason Start Time Stop Time Status Last Admin Dose Admin Acetaminophen (Tylenol) 500 mg Q4H PRN ORAL Mild Pain/Temp > 100.5 08/08/19 23:45 09/07/19 23:44 Atorvastatin Calcium (Lipitor) 80 mg BEDTIME ORAL 08/09/19 21:00 09/08/19 20:59 08/09/19 21:21 Benazepril HCl (Lotensin) 20 mg DAILY ORAL 08/09/19 09:00 09/08/19 08:59 08/09/19 09:31 Dextrose (Dextrose 50%) 25 ml Q30M PRN IV Hypoglycemia 08/09/19 06:45 09/08/19 06:44 Dextrose (Dextrose 50%) 50 ml Q30M PRN IV Hypoglycemia 08/09/19 06:45 09/08/19 06:44 Gabapentin (Neurontin) 300 mg BID ORAL 08/09/19 09:00 09/08/19 08:59 08/09/19 17:28 Insulin Aspart (NovoLOG) BEFORE MEALS AND HS SUBQ 08/09/19 06:30 09/08/19 06:29 08/09/19 21:23 Insulin Detemir (Levemir) 12 units DAILY SUBQ 08/09/19 09:00 09/08/19 08:59 08/09/19 11:50 Levothyroxine Sodium (Synthroid) 100 mcg DAILY@0630 ORAL 08/09/19 06:30 09/08/19 06:29 08/09/19 06:04 Methocarbamol (Robaxin) 750 mg BID PRN ORAL Muscle Spasms 08/09/19 00:00 09/08/19 00:00 Nateglinide (Starlix) 60 mg TIAC ORAL 08/09/19 11:30 09/08/19 11:29 08/09/19 17:28 Regadenoson (Lexiscan) 0.4 mg ONCE PRN IV STRESS TEST 08/09/19 08:15 08/11/19 08:14 David Pryor MD Aug 10, 2019 06:01
[2019-08-10] MEDS ORDERED: NovoLOG Insulin Flexpen SUBQ SCH ×2 (06:30)
[2019-08-10 08:00] VITALS: BP 113/60
[2019-08-10 08:56] VITALS: BP 113/60
[2019-08-10] MEDS: Benazepril 10mg tab ORAL SCH (08:56)
[2019-08-10] MEDS ORDERED: Levemir Flexpen SUBQ SCH (09:00)
--- NOTE | 2019-08-10 09:43 | Diagnostic Imaging Report ---
Indications: 48-year-old female with chest pain Technique: Single day single isotope protocol utilized. Initially, resting images obtained using IV administration 10.7 millicuries 99M technetium Myoview. Subsequently, patient underwent exercise treadmill stress testing. See cardiology report for details. During exercise, IV administration 31.1 mCi 99 M technetium Myoview. SPECT and planar images obtained. SPECT images gated to 8 phases of the cardiac cycle were also obtained, and reformatted into cine images for evaluation of ejection fraction. Comparison: none Findings: Per cardiology report, patient experienced no chest pain.. Resting EKG findings are described on the cardiology report. It does describe absence of ST changes during exercise. Patient achieved a peak heart rate of 155 bpm, in excess of the target heart rate 145. Imaging demonstrates very slightly decreased perfusion in the anterior wall which is unchanged on the resting images. No reversible perfusion defects are demonstrated. Normal left ventricular chamber size. Calculated post stress ejection fraction 78%. Normal wall motion is demonstrated on the gated images Impression: Nonischemic clinical response to pharmacologic stress, per cardiology report Nonischemic electrocardiographic response to pharmacologic stress, per cardiology report Small apparent fixed perfusion defect in the anterior wall. Given appearance, normal ejection fraction and absence of wall motion abnormality suspect that this is artifactual. Small infarct less likely but not completely excludable Calculated post stress ejection fraction greater than 70%
--- NOTE | 2019-08-10 10:24 | General Progress Note ---
Assessment/Plan Problem List: (1) ACS (acute coronary syndrome) ICD Codes: I24.9 - Acute ischemic heart disease, unspecified SNOMED: 029350650 (2) Back pain ICD Codes: M54.9 - Dorsalgia, unspecified SNOMED: 328926235 (3) Chest pain ICD Codes: R07.9 - Chest pain, unspecified SNOMED: 67748277 (4) Hypothyroid ICD Codes: E03.9 - Hypothyroidism, unspecified SNOMED: 17709390 (5) Diabetes mellitus out of control ICD Codes: E11.65 - Type 2 diabetes mellitus with hyperglycemia SNOMED: 28342696, 090170450 Status: progressing Assessment/Plan: no cp r/o acs once cleared by cardiology can be dc out of control/labile diabetes.per dr tolliver trop is borderline Subjective ROS Limited/Unobtainable: Yes Allergies: Coded Allergies: No Known Allergies (Unverified , 06/13/18) Objective Last 24 Hour Vital Signs Date Time Temp Pulse Resp B/P (MAP) Pulse Ox O2 Delivery O2 Flow Rate FiO2 08/10/19 08:56 113/60 08/10/19 08:00 97.9 79 19 113/60 (77) 96 08/10/19 04:00 76 08/10/19 04:00 97.6 80 16 130/76 (94) 96 08/10/19 00:00 74 08/10/19 00:00 98.2 69 15 124/59 (80) 97 08/09/19 21:00 Room Air 08/09/19 20:00 82 08/09/19 20:00 97.2 78 17 124/72 (89) 95 08/09/19 16:00 97.8 96 18 124/56 (78) 94 08/09/19 16:00 89 08/09/19 12:00 80 08/09/19 12:00 98.2 77 18 134/66 (88) 95 Intake and Output 08/09/19 08/10/19 19:00 07:00 Intake Total 600 ml Output Total 3 ml Balance 600 ml -3 ml Intake Oral 600 ml Output Urine Total 3 ml Stool Total 0 ml # Voids 3 Laboratory Tests 08/09/19 11:07: Urine Color Pale yellow, Urine Appearance Clear, Urine pH 7, Urine Specific [place] 1.005, Urine Protein Negative, Urine Glucose (UA) 4+H, Urine Ketones Negative, Urine Blood Negative, Urine Nitrite Negative, Urine Bilirubin Negative , Urine Urobilinogen Normal, Urine Leukocyte Esterase Negative, Urine RBC 0-2, Urine WBC 0-2, Urine Squamous Epithelial Cells Occasional, Urine Bacteria Occasional Height (Feet): 5 Height (Inches): 2.00 Weight (Pounds): 238 Cardiovascular: normal rate Respiratory/Chest: lungs clear Abdomen: soft Reagan Key MD Aug 10, 2019 10:24
--- NOTE | 2019-08-10 10:25 | Cardiac Electrophysiology PN ---
Assessment/Plan Assessment/Plan 1. Chest pain. The patient already ruled out for myocardial infarction. Her urine toxicology screen was negative. Echocardiogram Nl EF. Nuclear stress test no ischemia 2. Hypertension. On benazepril 20 mg daily and will be continued. 3. Uncontrolled diabetes. Hemoglobin A1c of more than 10. The patient is on insulin. 4. Hyperlipidemia, on Lipitor. 5. Obesity. 6. Hypothyroidism, on Synthroid. 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 Had stress test yesterday Objective Last 24 Hour Vital Signs Date Time Temp Pulse Resp B/P (MAP) Pulse Ox O2 Delivery O2 Flow Rate FiO2 08/10/19 08:56 113/60 08/10/19 08:00 97.9 79 19 113/60 (77) 96 08/10/19 04:00 76 08/10/19 04:00 97.6 80 16 130/76 (94) 96 08/10/19 00:00 74 08/10/19 00:00 98.2 69 15 124/59 (80) 97 08/09/19 21:00 Room Air 08/09/19 20:00 82 08/09/19 20:00 97.2 78 17 124/72 (89) 95 08/09/19 16:00 97.8 96 18 124/56 (78) 94 08/09/19 16:00 89 08/09/19 12:00 80 08/09/19 12:00 98.2 77 18 134/66 (88) 95 Intake and Output 08/09/19 08/10/19 19:00 07:00 Intake Total 600 ml Output Total 3 ml Balance 600 ml -3 ml Intake Oral 600 ml Output Urine Total 3 ml Stool Total 0 ml # Voids 3 Laboratory Tests Test 08/09/19 11:07 Urine Color Pale yellow Urine Appearance Clear Urine pH 7 (4.5-8.0) Urine Specific [place] 1.005 (1.005-1.035) Urine Protein Negative (NEGATIVE) Urine Glucose (UA) 4+ (NEGATIVE) H Urine Ketones Negative (NEGATIVE) Urine Blood Negative (NEGATIVE) Urine Nitrite Negative (NEGATIVE) Urine Bilirubin Negative (NEGATIVE) Urine Urobilinogen Normal MG/DL (0.0-1.0) Urine Leukocyte Esterase Negative (NEGATIVE) Urine RBC 0-2 /HPF (0 - 2) Urine WBC 0-2 /HPF (0 - 2) Urine Squamous Epithelial Cells Occasional /LPF Urine Bacteria Occasional /HPF (NONE) Objective HEAD AND NECK: Showed no JVD. LUNGS: Clear. CARDIOVASCULAR: Shows regular S1 and S2 with no gallop or murmur. ABDOMEN: Soft. EXTREMITIES: No pitting edema. Gerald Ponce MD Aug 10, 2019 10:25
--- NOTE | 2019-08-10 10:39 | Pulmonology Progress Note ---
Assessment/Plan Assessment/Plan IMPRESSION: 1. Chest pain, deferred to Cardiology. 2. No evidence of pneumonia. 3. Hypertension. 4. Diabetes mellitus. DISCUSSION: Agree with current medications and care. The patient needs a cardiac workup, which I concur. Stress test has been ordered. Diabetes control. Pj Lopez M.D. Subjective Interval Events: Feeling better Constitutional: Reports: no symptoms HEENT: Repors: no symptoms Respiratory: Reports: no symptoms Cardiovascular: Reports: no symptoms Allergies: Coded Allergies: No Known Allergies (Unverified , 06/13/18) Objective Last 24 Hour Vital Signs Date Time Temp Pulse Resp B/P (MAP) Pulse Ox O2 Delivery O2 Flow Rate FiO2 08/10/19 09:00 Room Air 08/10/19 08:56 113/60 08/10/19 08:00 80 08/10/19 08:00 97.9 79 19 113/60 (77) 96 08/10/19 04:00 76 08/10/19 04:00 97.6 80 16 130/76 (94) 96 08/10/19 00:00 74 08/10/19 00:00 98.2 69 15 124/59 (80) 97 08/09/19 21:00 Room Air 08/09/19 20:00 82 08/09/19 20:00 97.2 78 17 124/72 (89) 95 08/09/19 16:00 97.8 96 18 124/56 (78) 94 08/09/19 16:00 89 08/09/19 12:00 80 08/09/19 12:00 98.2 77 18 134/66 (88) 95 Intake and Output 08/09/19 08/10/19 18:59 06:59 Intake Total 600 ml Output Total 3 ml Balance 600 ml -3 ml Intake Oral 600 ml Output Urine Total 3 ml Stool Total 0 ml # Voids 3 General Appearance: no acute distress HEENT: normocephalic Respiratory/Chest: chest wall non-tender Cardiovascular: normal peripheral pulses Abdomen: normal bowel sounds Laboratory Tests 08/09/19 11:07: Urine Color Pale yellow, Urine Appearance Clear, Urine pH 7, Urine Specific [place] 1.005, Urine Protein Negative, Urine Glucose (UA) 4+H, Urine Ketones Negative, Urine Blood Negative, Urine Nitrite Negative, Urine Bilirubin Negative , Urine Urobilinogen Normal, Urine Leukocyte Esterase Negative, Urine RBC 0-2, Urine WBC 0-2, Urine Squamous Epithelial Cells Occasional, Urine Bacteria Occasional Current Medications Medications (Trade) Dose Ordered Sig/Kady Route PRN Reason Start Time Stop Time Status Last Admin Dose Admin Acetaminophen (Tylenol) 500 mg Q4H PRN ORAL Mild Pain/Temp > 100.5 08/08/19 23:45 09/07/19 23:44 Atorvastatin Calcium (Lipitor) 80 mg BEDTIME ORAL 08/09/19 21:00 09/08/19 20:59 08/09/19 21:21 Benazepril HCl (Lotensin) 20 mg DAILY ORAL 08/09/19 09:00 09/08/19 08:59 08/10/19 08:56 Dextrose (Dextrose 50%) 25 ml Q30M PRN IV Hypoglycemia 08/10/19 06:00 09/09/19 05:59 Dextrose (Dextrose 50%) 50 ml Q30M PRN IV Hypoglycemia 08/10/19 06:00 09/09/19 05:59 Gabapentin (Neurontin) 300 mg BID ORAL 08/09/19 09:00 09/08/19 08:59 08/10/19 08:56 Insulin Aspart (NovoLOG) BEFORE MEALS AND HS SUBQ 08/10/19 06:30 09/09/19 06:29 08/10/19 06:12 Insulin Aspart (NovoLOG) 10 units NOVOTIAC SUBQ 08/10/19 06:30 09/09/19 06:29 08/10/19 06:11 Insulin Detemir (Levemir) 30 units DAILY SUBQ 08/10/19 09:00 09/08/19 08:59 08/10/19 09:06 Levothyroxine Sodium (Synthroid) 100 mcg DAILY@0630 ORAL 08/09/19 06:30 09/08/19 06:29 08/10/19 06:11 Methocarbamol (Robaxin) 750 mg BID PRN ORAL Muscle Spasms 08/09/19 00:00 09/08/19 00:00 Regadenoson (Lexiscan) 0.4 mg ONCE PRN IV STRESS TEST 08/09/19 08:15 08/11/19 08:14 Pj Lopez MD Aug 10, 2019 10:39
--- NOTE | 2019-08-14 07:08 | Discharge Summary ---
Discharge Summary Discharge Summary _ DATE OF ADMISSION: 08/08/2019 DATE OF DISCHARGE: 08/10/2019 DISCHARGED BY: Dr. Key REASON FOR ADMISSION: 48 years old female with past medical history of hypertension, insulin- dependent diabetes mellitus, presented to emergency department with complaint of chest heaviness and palpitations. Patient denied any prior history of myocardial infarction , coronary artery disease or congestive heart failure. In emergency department blood pressure was 141/62 , pulse rate, 85 respiration 20. Troponin was negative . EKG did not show any acute ischemic changes. Chest x-ray demonstrated no acute cardiopulmonary pathology. Patient subsequently admitted to telemetry floor to rule out acute coronary syndrome. CONSULTANTS: soil surveyor Dr. Fry pulmonary Dr. Lopez hot tamale worker Dr. Pryor [facility] COURSE: Patient admitted to telemetry floor. Serial troponin were negative. EKG revealed no acute ischemic changes. Patient was ruled out for acute myocardial infarction. Echocardiogram revealed preserved ejection fraction of 60 to 65% with no evidence of left ventricular hypertrophy. No evidence of wall motion abnormality. Right ventricular pressure of 44 consistent with a mild pulmonary hypertension. Nuclear stress test revealed no evidence of ischemia. Blood pressure was managed with MARIANNA inhibitor. Hemoglobin A1c was over 10, clearly not at goal. Blood sugar was managed as per hot tamale worker recommendation. Dose of long-acting insulin was uptitrated and short acting NovoLog pre-meal was added. Starlix was discontinued. Patient will need close follow up with her primary care physician to optimize hypoglycemic regimen in order to bring blood sugar under control. Patient was educated on cardiac and diabetic diet. Statin continued. Pulse oximetry was stable on room air. Urine toxicology screen was negative. Patient clinically stabilized and was ready for discharge home. FINAL DIAGNOSES: Chest pain Diabetes mellitus [id number] Hypertension Hyperlipidemia Obesity Hypothyroidism DISCHARGE MEDICATIONS: See Medication Reconciliation list. DISCHARGE INSTRUCTIONS: Patient was discharged home . patient to follow-up with a primary care provider in 1 week. I have been assigned to dictate discharge summary for this account. I was not involved in the patient's management. Jordyn Bansal NP Aug 14, 2019 07:08
--- NOTE | 2019-08-14 19:52 | Coder Physician Query ---
Clarification is required for compliance, coding accuracy, and to reflect severity of illness for this patient Dear Dr. BLACKBURN Date: 08/14/2019 Infection Control Nurse/CDS' Name: LACY, CCS 48 years old female with past medical history of hypertension, insulin- dependent diabetes mellitus, presented to emergency department with complaint of chest heaviness and palpitations. Patient denied any prior history of myocardial infarction , coronary artery disease or congestive heart failure. In emergency department blood pressure was 141/62 , pulse rate, 85 respiration 20. Troponin was negative . EKG did not show any acute ischemic changes. Chest x-ray demonstrated no acute cardiopulmonary pathology. The patient's troponin were negative. Chest pain. The patient already ruled out for myocardial infarction. Her urine toxicology screen was negative. FINAL DIAGNOSES: Chest pain Please document the suspected etiology of Chest Pain: [] Acute Coronary Syndrome [] Pericarditis [] Anxiety [] Cancer [] Pneumonia [] Costochondritis [] Pneumothorax [] GERD/Esophagitis [] Pulmonary embolism [] Other: [] Unable to determine RG BLACKBURN M.D. Date Please also document in your Progress Notes and/or Discharge Summary and indicate if the condition was present on admission. SILVIA
== END 2019-08-10 11:10 | disposition home or self-care (01) | DRG 198 ==
LOC: EMR 20:50 → 2E 21:28 → INTOOBSV 21:28 → OBSVTOIN 21:28 → EDBEDREQ 21:57 → 2E 23:44
DX: R07.9 Chest pain, unspecified (principal); I10 Essential (primary) hypertension; I24.9 Acute ischemic heart disease, unspecified; E11.65 Type 2 diabetes mellitus with hyperglycemia; E03.9 Hypothyroidism, unspecified; Z79.4 Long term (current) use of insulin; M54.9 Dorsalgia, unspecified; E78.5 Hyperlipidemia, unspecified; E66.9 Obesity, unspecified
CPT/HCPCS: 36415; 71045; 78452; 80053; 80307; 81001; 82550; 82962; 83036; 83690; 83880; 84484; 85025; 93005; 93017; 93306; 96360; 96374; 99284; 99285; J1815; S5561

== ENCOUNTER 2020-07-03 15:54 | Emergency (ER) | payer MEDICAID ==
[~2020-07-03] VITALS: Ht 157.5 cm; Wt 108.9 kg
[~2020-07-03 15:54] MED LIST changes: +SYNTHROID100 MCG ORAL
[2020-07-03 16:00] VITALS: BP 136/62
--- NOTE | 2020-07-03 16:00 | NUR ---
ED Nurse Note: Pt walked in to Ed from home c/o non rdiating, left side chest pressure and dizziness x2 days. Has hx of ACS. Denies nausea and vomiting. No SOB, on room air. Pt placed on quality assurance monitor final.
--- NOTE | 2020-07-03 16:11 | NUR ---
ED Nurse Note: IV line established. Blood and covid swab sent to lab.
[2020-07-03] MEDS ORDERED: Lidocaine 2% Visc 15ml soln ORAL ONE (16:15)
[2020-07-03] MEDS ORDERED: Mylanta II UD 30ml ORAL ONE (16:15)
--- NOTE | 2020-07-03 16:25 | NUR ---
ED Nurse Note: xray at bedside.
--- NOTE | 2020-07-03 17:02 | Diagnostic Imaging Report ---
Indication: Chest pain Technique: One view of the chest Comparison: 08/08/2019 Findings: Lungs and pleural spaces are clear. Heart size is normal. No significant change Impression: No acute process
[2020-07-03 17:07] LABS: HEMATOCRIT 45.6 % (37.0-47.0); HEMOGLOBIN 14.5 G/DL (12.0-16.0); LYMPHOCYTES % (AUTO) 31.2 % (20.0-45.0); MEAN CORPUSCULAR VOLUME 94 FL (80-99); MONOCYTES % (AUTO) 7.6 % (1.0-10.0); NEUTROPHILS % (AUTO) 58.2 % (45.0-75.0); PLATELET COUNT 207 K/UL (150-450); RED BLOOD COUNT 4.83 M/UL (4.20-5.40); WHITE BLOOD COUNT 7.3 K/UL (4.8-10.8)
[2020-07-03 17:11] LABS: ANION GAP 7 mmol/L (5-15); BLOOD UREA NITROGEN 11 mg/dL (7-18); CALCIUM 9.3 MG/DL (8.5-10.1); CARBON DIOXIDE 31 MMOL/L (21-32); CHLORIDE 100 MMOL/L (98-107); CREATININE 0.8 MG/DL (0.55-1.30); POTASSIUM 4.1 MMOL/L (3.5-5.1); SODIUM 138 MMOL/L (136-145)
[2020-07-03 17:33] LABS: ALANINE AMINOTRANSFERASE 36 U/L (12-78); ALBUMIN 3.5 G/DL (3.4-5.0); ALBUMIN/GLOBULIN RATIO 0.8 (1.0-2.7); ALKALINE PHOSPHATASE 120 U/L (46-116); ASPARTATE AMINO TRANSFERASE 22 U/L (15-37); BILIRUBIN,TOTAL 0.7 MG/DL (0.2-1.0); CREATINE KINASE 92 U/L (26-308); FERRITIN 163 NG/ML (8-388); LACTATE DEHYDROGENASE 297 U/L (81-234)
[2020-07-03] MEDS ORDERED: Omnipaque 350 100ml vial INJ PRN (17:45)
--- NOTE | 2020-07-03 18:12 | NUR ---
ED Nurse Note: Pt was taken to CT via lucy, accompanied by a tech.
[2020-07-03 18:22] VITALS: BP 152/69
--- NOTE | 2020-07-03 18:23 | NUR ---
ED Nurse Note: Pt returned from CT, not in any distress.
[2020-07-03 18:31] LABS: APPEARANCE,URINE CLEAR; BILIRUBIN, URINE NEGATIVE (NEGATIVE); COLOR,URINE PALE YELLOW; GLUCOSE, URINE (UA) 2+ (NEGATIVE); KETONES,URINE NEGATIVE (NEGATIVE); LEUKOCYTE ESTERASE ,URINE NEGATIVE (NEGATIVE); NITRITE,URINE NEGATIVE (NEGATIVE); PH,URINE 7 (4.5-8.0); PROTEIN,URINE 1+ (NEGATIVE); UROBILINOGEN,URINE NORMAL MG/DL (0.0-1.0)
--- NOTE | 2020-07-03 18:40 | Emergency Room Report ---
History of Present Illness General Chief Complaint: Chest Pain Source: Patient Present Illness HPI The patient states that for the past 2 days she has had chest pressure that is radiating to her back. She states that today she felt the pressure was more severe and also radiated down her arms and she had tingling in her fingers. She states that she did have COVID-19 in early May. She has recovered from that. She states she was seen for similar symptoms mid last year. She states she underwent a stress test and an ultrasound of her heart at that time. She states that everything was clear on that cardiac work-up. She denies cough or congestion. She denies fever or chills. She denies headache or neck pain. She denies abdominal pain. She has no other complaints. Allergies: Coded Allergies: No Known Allergies (Unverified , 06/13/18) COVID-19 Screening Contact w/high risk pt: No Experienced COVID-19 symptoms?: No COVID-19 Testing performed INSTRUCTIONAL MATERIALS DIRECTOR: Yes COVID-19 Screening: Negative COVID-19 COVID-19 Testing Source: 07/03/20 Patient History Past Medical History: DM, HTN, other - Hypothyroid Social History: Denies: smoking, alcohol use, drug use Now: No Reviewed Nursing Documentation: PMH: Agreed; PSxH: Agreed Nursing Documentation-PMH Past Medical History: No History, Except For Hx Cardiac Problems: Yes Hx Hypertension: Yes Hx Diabetes: Yes Hx Cancer: No Hx Gastrointestinal Problems: No Hx Neurological Problems: No Review of Systems All Other Systems: negative except mentioned in HPI Physical Exam Vital Signs Date Time Temp Pulse Resp B/P (MAP) Pulse Ox O2 Delivery O2 Flow Rate FiO2 07/03/20 15:57 99.0 100 20 136/62 (86) 94 Room Air Sp02 EP Interpretation: reviewed, normal General Appearance: no apparent distress, alert, GCS 15, non-toxic Head: normocephalic, atraumatic Eyes: bilateral eye normal inspection, bilateral eye PERRL ENT: hearing grossly normal, normal pharynx, no angioedema, normal voice Neck: full range of motion, supple/symm/no masses Respiratory: chest non-tender, lungs clear, normal breath sounds, no respiratory distress, no retraction, no accessory muscle use, speaking full sentences Cardiovascular #1: regular rate, rhythm, no edema Gastrointestinal: normal bowel sounds, non tender, soft, non-distended, no guarding, no rebound Rectal: deferred Musculoskeletal: back normal, normal range of motion, gait/station normal, non- tender Neurologic: alert, motor strength/tone normal, oriented x3, sensory intact, responsive, speech normal Psychiatric: judgement/insight normal, memory normal, mood/affect normal, no suicidal/homicidal ideation Skin: no rash, normal color Medical Decision Making Diagnostic Impression: Primary Impression: Atypical pneumonia ER Course This patient presents with chest pressure and tingling and numbness radiating down her arms to her fingers. Differential diagnosis included: Acute coronary syndrome, PE, COVID-19 infection, musculoskeletal pain, gastritis/esophagitis to name a few. The patient's chest x-ray did have some cardiomegaly. However, this was unchanged from a previous x-ray last year. COVID-19 test was negative. The patient's D-dimer was slightly elevated and so I felt that given the patient's history of COVID-19 infection 1 month ago and that it has been found that patients have increased clotting post COVID-19 infection to include PE, CVA and KS, I felt that I should obtain a CT of the chest to rule out PE. CT showed did not show any evidence of PE, however, there was findings of patchy airspace disease. Unfortunately, given the patient presents in a COVID-19 pandemic, likely this is related to COVID-19 infection. The rapid Covid test today is negative. However this could be a false negative. Otherwise this could be an atypical pneumonia and so I will treat the patient with a course of azithromycin. Patient was also educated that she may still have COVID-19 despite a negative rapid Covid as the rapid Covid test is notoriously known to have false negatives. Overall, the patient is well-appearing and nontoxic. She has no evidence of respiratory distress. Troponin is negative and the patient has recently had a full cardiac work-up within the last 6 months. I have a low suspicion for acute coronary syndrome. Further, EKG is reassuring as was normal sinus rhythm. She was instructed to follow-up with her primary care physician. The patient is given close return precautions and follow-up instructions. This patient was evaluated in the context of the global COVID-19 pandemic, which necessitated consideration that the patient might be at risk for infection with the [id number] virus that causes COVID-19. Institutional protocols and algorithms that pertain to the evaluation of patients at risk for COVID-19 and the state of rapid change based on information released by multiple regulatory bodies including the CDC and federal and state organizations. These policies and algorithms were followed during the patient's care in the ED. Laboratory Tests Test 07/03/20 16:11 07/03/20 17:00 07/03/20 17:55 White Blood Count 7.3 K/UL (4.8-10.8) Red Blood Count 4.83 M/UL (4.20-5.40) Hemoglobin 14.5 G/DL (12.0-16.0) Hematocrit 45.6 % (37.0-47.0) Mean Corpuscular Volume 94 FL (80-99) Mean Corpuscular Hemoglobin 29.9 PG (27.0-31.0) Mean Corpuscular Hemoglobin Concent 31.7 G/DL (32.0-36.0) L Red Cell Distribution Width 14.0 % (11.6-14.8) Platelet Count 207 K/UL (150-450) Mean Platelet Volume 10.4 FL (6.5-10.1) H Neutrophils (%) (Auto) 58.2 % (45.0-75.0) Lymphocytes (%) (Auto) 31.2 % (20.0-45.0) Monocytes (%) (Auto) 7.6 % (1.0-10.0) Eosinophils (%) (Auto) 2.0 % (0.0-3.0) Basophils (%) (Auto) 1.0 % (0.0-2.0) Prothrombin Time 10.7 SEC (9.30-11.50) Prothrombin Time INR 1.0 (0.9-1.1) Activated Partial Thromboplast Time 26 SEC (23-33) D-Dimer 1.14 mg/L FEU (0.00-0.49) H Sodium Level 138 MMOL/L (136-145) Potassium Level 4.1 MMOL/L (3.5-5.1) Chloride Level 100 MMOL/L (98-107) Carbon Dioxide Level 31 MMOL/L (21-32) Anion Gap 7 mmol/L (5-15) Blood Urea Nitrogen 11 mg/dL (7-18) Creatinine 0.8 MG/DL (0.55-1.30) Estimated Glomerular Filtration Rate > 60 mL/min (>60) Glucose Level 266 MG/DL (74-106) H Calcium Level 9.3 MG/DL (8.5-10.1) Ferritin 163 NG/ML (8-388) Total Bilirubin 0.7 MG/DL (0.2-1.0) Aspartate Amino Transferase (AST) 22 U/L (15-37) Alanine Aminotransferase (ALT) 36 U/L (12-78) Alkaline Phosphatase 120 U/L (46-116) H Lactate Dehydrogenase 297 U/L (81-234) H Total Creatine Kinase 92 U/L (26-308) Creatine Kinase MB 1.0 NG/ML (0.0-3.6) Creatine Kinase MB Relative Index 1.0 Troponin I 0.044 ng/mL (0.000-0.056) C-Reactive Protein, Quantitative 1.2 mg/dL (0.00-0.90) H Pro-B-Type Natriuretic Peptide 70 pg/mL (0-125) Total Protein 7.8 G/DL (6.4-8.2) Albumin 3.5 G/DL (3.4-5.0) Globulin 4.3 g/dL Albumin/Globulin Ratio 0.8 (1.0-2.7) L Lipase 87 U/L (73-393) Lactic Acid Level 2.10 mmol/L (0.4-2.0) H Pending Urine Color Pale yellow Urine Appearance Clear Urine pH 7 (4.5-8.0) Urine Specific [place] 1.005 (1.005-1.035) Urine Protein 1+ (NEGATIVE) H Urine Glucose (UA) 2+ (NEGATIVE) H Urine Ketones Negative (NEGATIVE) Urine Blood Negative (NEGATIVE) Urine Nitrite Negative (NEGATIVE) Urine Bilirubin Negative (NEGATIVE) Urine Urobilinogen Normal MG/DL (0.0-1.0) Urine Leukocyte Esterase Negative (NEGATIVE) Urine RBC Pending Urine WBC Pending Urine Squamous Epithelial Cells Pending Urine Bacteria Pending Urine Opiates Screen Pending Urine Barbiturates Screen Pending Phencyclidine (PCP) Screen Pending Urine Amphetamines Screen Pending Urine Benzodiazepines Screen Pending Urine Cocaine Screen Pending Urine Marijuana (THC) Screen Pending Microbiology Date/Time Source Procedure Growth Status 07/03/20 16:22 Nasopharynx SARS-CoV-2 RdRp Gene Assay - Final Complete EKG Diagnostic Results Rate: normal Rhythm: NSR ST Segments: no acute changes Rhythm Strip Diag. Results EP Interpretation: yes Rate: 90's Rhythm: NSR, no PVC's, no ectopy Chest X-Ray Diagnostic Results Chest X-Ray Diagnostic Results : Chest X-Ray Ordered: Yes # of Views/Limited/Complete: 1 View Indication: Chest Pain EP Interpretation: Yes Interpretation: no effusion, other - cardiomegaly (borderline), unchanged from comparison.? mild patchy opacities. Impression: Other - atypical PNA CT/MRI/US Diagnostic Results CT/MRI/US Diagnostic Results : Imaging Test Ordered: CT chest: Impression 1. No central or peripheral pulmonary emboli. 2. Patchy airspace disease worrisome for atypical pneumonias. Last Vital Signs Date Time Temp Pulse Resp B/P (MAP) Pulse Ox O2 Delivery O2 Flow Rate FiO2 07/03/20 16:00 100 20 Room Air 07/03/20 16:00 99.0 136/62 94 Status: improved Disposition: HOME, SELF-CARE Condition: Improved Referrals: NOT CHOSEN IPA/,REFERRING (PCP) Day Yanes DO Jul 03, 2020 18:40
--- NOTE | 2020-07-03 18:55 | Diagnostic Imaging Report ---
EXAM: CT Angiography Chest With Intravenous Contrast CLINICAL HISTORY: Dyspnea. For pulmonary embolism. TECHNIQUE: Axial computed tomographic angiography images of the chest with intravenous contrast. CTDI is 64.70 mGy and DLP is 518.70 mGy-cm. One or more of the following dose reduction techniques were used: automated exposure control, adjustment of the mA and/or kV according to patient size, use of iterative reconstruction technique. MIP reconstructed images were created and reviewed. COMPARISON: 07/03/2020. FINDINGS: Pulmonary arteries: No central pulmonary embolism is noted. Peripheral branch of the pulmonary arteries are unremarkable. Aorta: Thoracic aorta and its branches are unremarkable. No thoracic aortic aneurysm. Lungs: Evaluation of the pulmonary parenchyma bilaterally reveals minimal patchy airspace disease throughout both lungs mid lower lung zones most suggestive of residual or early atypical pneumonia such as Covid-19 pneumonia. The airway is patent. A 0.6 cm calcified granuloma is noted posteriorly at the left lung base. No mass. Pleural space: Unremarkable. No significant effusion. No pneumothorax. Heart: Heart is normal in size. No significant pericardial effusion. No evidence of RV dysfunction. Thyroid: The thyroid gland is unremarkable. Bones/joints: Moderate to severe degenerative disc disease of the thoracic spine. The sternum is unremarkable per No acute fracture. No dislocation. Soft tissues: Unremarkable. Lymph nodes: Unremarkable. No enlarged lymph nodes. Liver: Fatty liver. Other findings: Hypoaeration. IMPRESSION: 1. No central or peripheral pulmonary emboli. 2. Patchy airspace disease worrisome for atypical pneumonias.
--- NOTE | 2020-07-03 19:11 | NUR ---
HAND-OFF: Report given to Kari VELEZ.
[2020-07-03 19:12] VITALS: BP 150/72
--- NOTE | 2020-07-03 19:12 | NUR ---
ED Nurse Note: Pt resting in bed, AAOx4 VSS. No complaints from pt at the moment. Aware pending results from CT and labs and EDMD review.
[2020-07-03] MEDS ORDERED: ZITHROMAX250 MG ORAL (19:23)
[2020-07-03 19:45] VITALS: BP 128/76
--- NOTE | 2020-07-03 19:45 | NUR ---
ER DISCHARGE NOTE: Patient is cleared to be discharged per ERMD, pt is aox4, on room air, with stable vital signs. pt was given dc and prescription instructions, pt was able to verbalize understanding, pt id band and iv site removed without complications. pt is able to ambulate with steady gait. pt took all belongings.
== END 2020-07-03 19:45 | disposition home or self-care (01) ==
LOC: EMR 16:14
DX: J18.9 Pneumonia, unspecified organism (principal); I10 Essential (primary) hypertension; E11.9 Type 2 diabetes mellitus without complications; E03.9 Hypothyroidism, unspecified; Z86.16 Personal history of COVID-19
CPT/HCPCS: 36415; 71045; 71275; 80053; 80307; 81003; 82550; 82553; 82728; 83605; 83615; 83690; 83880; 84484; 85025; 85379; 85610; 85730; 86140; 87040; 93005; Q9967; U0002; Z7502; 99284